=== PATIENT | male | born 1980 | race Caucasian/White ===

== ENCOUNTER 2023-08-18 08:19 | Outpatient (CLI) | payer OTHER, SELFPAY | END 2023-08-18 08:20 | disposition home or self-care (01) | PROVIDERS: PCP Physician Assistant Medical; Visit Provider Family Medicine | DX: Z13.220 Encounter for screening for lipoid disorders (principal); Z13.228 Encounter for screening for other metabolic disorders | CPT/HCPCS: 80053; 80061 ==

== ENCOUNTER 2025-03-22 08:10 | Outpatient (CLI) | payer OTHER, SELFPAY | END 2025-03-22 08:11 | disposition home or self-care (01) | LOC: NFLDREF 03-26 11:09 | PROVIDERS: PCP Nurse Practitioner Family; Referring Provider Family Medicine; Visit Provider Nurse Practitioner Family | DX: Z00.00 Encounter for general adult medical examination without abnormal findings (principal); R53.83 Other fatigue; Z13.6 Encounter for screening for cardiovascular disorders | CPT/HCPCS: 80053; 80061 ==

== ENCOUNTER 2025-05-05 23:44 | Day surgery (SDC) | payer OTHER, SELFPAY ==
[2025-05-05 23:51] VITALS: BP 106/59; PULSE 71; RESP 16; TEMP 36.6; O2SAT 100; BMI 31.2
[2025-05-06] VITALS (24 sets, daily range): BP systolic 109–142; BP diastolic 60–86; PULSE 65–104; RESP 12–22; TEMP 36.6–37.2; O2SAT 97–100; BMI 31.0
[2025-05-06] MEDS: ONDANSETRON 2 MG/ML inj 4 MG IVP
[2025-05-06 00:05] LABS: Hematocrit 40.0 % (37.0-53.0); Hemoglobin* 13.4 gm/dL (13.5-17.5); Immature Granulocytes Abs Auto 0.08 K/uL (0.00-0.30); Immature Granulocytes Pct Auto 0.9 %; Mean Corpuscular HGB Conc 34 gm/dL (32-36); Mean Corpuscular Hemoglobin 29 pg (26-34); Mean Corpuscular Volume 87 fL (80-100); RDW Coefficient of Variation % 11.9 % (11.5-15.5); Red Blood Count 4.61 m/uL (4.30-5.90); White Blood Count* 8.90 K/uL (4.50-11.00)
[2025-05-06 00:06] LABS: Appearance Urine Slightly Cloudy (Clear)
[2025-05-06 00:06] LABS: Lactate* 1.1 mmol/L (0.5-1.9); Lymphocytes Absolute Auto 0.70 K/uL (0.90-2.90)
[2025-05-06 00:07] LABS: Slide Review Reflex No
--- NOTE | 2025-05-06 00:15 | ED_ITS ---
HPI - Abdominal Pain General Date Seen: 05/06/25 <Aramis Weiner MD - Last Filed: 05/06/25 07:28> Chief Complaint: Abdominal Pain <Aramis Weiner MD - Last Filed: 05/06/25 07:28> Stated Complaint: abdominal pain <Aramis Weiner MD - Last Filed: 05/06/25 07:28> Time Seen by Provider: 05/05/25 23:53 <Aramis Weiner MD - Last Filed: 05/06/25 07:28> Source: patient, family, RN notes reviewed and old records reviewed <Aramis Weiner MD - Last Filed: 05/06/25 07:28> Mode of arrival: ambulatory <Aramis Weiner MD - Last Filed: 05/06/25 07:28> Limitations: no limitations <Aramis Weiner MD - Last Filed: 05/06/25 07:28> History of Present Illness HPI narrative: Patient is a 44-year-old gentleman who presents here ambulatory for evaluation of abdominal pain he describes in his upper quadrants, with radiation to his testicles. He had abdominal pain earlier in the day at approximately 1:00 p.m., vomited and the pain went away he was able to eat dinner at approximately 6:00 p.m. and then 2 hours later approximately 8:00 p.m. he started vomiting again with the abdominal pain came back. Does not radiate to his back, denies any fevers chills chest pain or shortness of breath associated with this. She has had no rashes he has been ED and drinking otherwise normally today no dysuria frequency and no diarrhea. No history of previous operations on his abdomen. Says he is very phobic of needles, and did get a little pale when we saw him initially. Came here with his and children. No other people currently sick there is no history of travel. History of depression and anxiety. <Aramis Weiner MD - Last Filed: 05/06/25 07:28> MD elicited complaint: abdominal pain <Aramis Weiner MD - Last Filed: 05/06/25 07:28> Pertinent past history: none <Aramis Weiner MD - Last Filed: 05/06/25 07:28> Onset (ago): hour(s) <Aramis Weiner MD - Last Filed: 05/06/25 07:28> Location: epigastric <Aramis Weiner MD - Last Filed: 05/06/25 07:28> Severity: moderate <Aramis Weiner MD - Last Filed: 05/06/25 07:28> Quality: cramping and stabbing <Aramis Weiner MD - Last Filed: 05/06/25 07:28> Radiation: other <Aramis Weiner MD - Last Filed: 05/06/25 07:28> Migration to: no migration <Aramis Weiner MD - Last Filed: 05/06/25 07:28> Exacerbating factors: movement <Aramis Weiner MD - Last Filed: 05/06/25 07:28> Relieving factors: vomiting <Aramis Weiner MD - Last Filed: 05/06/25 07:28> Associated symptoms: nausea, vomiting and chills <Aramis Weiner MD - Last Filed: 05/06/25 07:28> Treatments prior to arrival: other (Pepto-Bismol) <Aramis Weiner MD - Last Filed: 05/06/25 07:28> Related Data Home Medications: Previous Rx's ?Medication ?Instructions ?Recorded bupropion HCl 150 mg 24 hr tablet, 150 mg PO DAILY #90 tabs 03/22/25 extended release clindamycin phosphate 1 % lotion 1 applic topical BID #60 mL 03/22/25 <Aramis Weiner MD - Last Filed: 05/06/25 07:28> Allergies/Adverse Reactions: Allergies Allergy/AdvReac Type Severity Reaction Status Date / Time peanut oil Allergy Severe closing of Verified 05/06/25 02:23 throat house dust Allergy Mild Verified 05/06/25 02:23 pollen extracts Allergy Mild Verified 05/06/25 02:23 raw vegetable Allergy Mild Swelling Verified 05/06/25 02:23 of Lip/Tongue/Throat raw nuts Allergy Severe throat Uncoded 03/22/25 07:41 closes <MD Maira Tinajero Last Filed: 05/06/25 07:28> Review of Systems Status of ROS Reports: 10 or more systems reviewed and unremarkable except as noted in History and below <Aramis Weiner MD - Last Filed: 05/06/25 07:28> [facility] Surgical History: Surgical History No pertinent past surgical history ?Z78.9 - Other specified health status (ICD-10) <Aramis Weiner MD - Last Filed: 05/06/25 07:28> Family History: Family History Sister Breast cancer Mother Stroke Diabetes Grandfather Prostate cancer <Aramis Weiner MD - Last Filed: 05/06/25 07:28> Social History: Social History Narrative: alcohol ingestion, 1-4 drinks/week does not use illicit drugs nonsmoker What is your current living situation?: I presently have a place to live Problems where you live: declined to answer In the past 12 months, utilities in danger of being shut off: declined to answer In past 12 months, lack of transportation kept you from medical appts, meetings, work, or getting things needed for daily living: no In the past 12 mos, have been you worried that your food would run out before you had money to buy more?: declined to answer In the past 12 mos, the food you bought just didn't last and you didn't have money to buy more?: declined to answer Smoking Status: Never smoker Second hand tobacco smoke exposure: No How often do you have a drink containing alcohol: never AUDIT-C Alcohol total score: 0 Non-prescribed substance use: denies use How often does anyone, including family, friends and others, physically hurt you : decline to answer How often does anyone, including family, friends and others, insult or talk down to you: decline to answer How often does anyone, including family, friends and others, threaten you with harm: decline to answer How often does anyone, including family, friends and others, scream or curse at you: decline to answer <Aramis Weiner MD - Last Filed: 05/06/25 07:28> Exam Narrative: Exam Narrative: On examination in room 5 he is in no apparent distress he is pleasant alert speaking to me normally. Although he does feel to be in moderate distress. Pupils equal round reactive to light there is no scleral icterus redness TMs bilaterally normal oropharynx normal, little pale looking after my nurses put an IV in him. No lymphadenopathy anterior posterior chains no meningismus, chest is good air entry bilaterally heart sounds are normal he has a little bit tenderness upper quadrants with a bit of a positive Pool sign, no CVA tenderness bowel sounds are quiet, no hernias are noted normal male genitalia, no CVA tenderness. No masses noted. No organomegaly. No rashes. Moves all extremities independently all neurologically intact, normal pulses. <Aramis Weiner MD - Last Filed: 05/06/25 07:28> Const: Vital Signs, click to edit/add: Vital Signs - 24 hr 05/05/25 23:51 05/06/25 00:00 05/06/25 00:00 Temperature 97.9 F 97.9 F Pulse Rate Pulse Rate [Pulse Oximeter] 71 68 Respiratory Rate 16 16 Blood Pressure Blood Pressure [Le ft Upper Arm] 106/59 L 110/60 Pulse Oximetry 100 100 100 Oxygen Delivery Me thod Room Air Room Air 05/06/25 00:07 05/06/25 00:31 05/06/25 01:01 Temperature 98.0 F Pulse Rate 65 95 79 Pulse Rate [Pulse Oximeter] Respiratory Rate 20 22 20 Blood Pressure 109/61 113/65 112/66 Blood Pressure [Le ft Upper Arm] Pulse Oximetry 99 98 97 Oxygen Delivery Me thod 05/06/25 01:55 05/06/25 02:02 05/06/25 04:02 Temperature 98.2 F Pulse Rate 88 69 72 Pulse Rate [Pulse Oximeter] Respiratory Rate 20 20 18 Blood Pressure 126/69 125/67 129/70 Blood Pressure [Le ft Upper Arm] Pulse Oximetry 97 97 99 Oxygen Delivery Me thod 05/06/25 06:02 05/06/25 06:03 05/06/25 08:00 Temperature 98.4 F Pulse Rate 91 92 102 H Pulse Rate [Pulse Oximeter] Respiratory Rate 18 Blood Pressure 116/69 Blood Pressure [Le ft Upper Arm] Pulse Oximetry 97 98 97 Oxygen Delivery Me thod 05/06/25 08:01 Temperature Pulse Rate 104 H Pulse Rate [Pulse Oximeter] Respiratory Rate 16 Blood Pressure 114/67 Blood Pressure [Le ft Upper Arm] Pulse Oximetry 97 Oxygen Delivery Me thod <Aramis Weiner MD - Last Filed: 05/06/25 07:28> Vital Signs, click to edit/add: Vital Signs - 24 hr 05/05/25 23:51 05/06/25 00:00 05/06/25 00:00 Temperature 97.9 F 97.9 F Pulse Rate Pulse Rate [Pulse Oximeter] 71 68 Respiratory Rate 16 16 Blood Pressure Blood Pressure [Le ft Upper Arm] 106/59 L 110/60 Pulse Oximetry 100 100 100 Oxygen Delivery Me thod Room Air Room Air 05/06/25 00:07 05/06/25 00:31 05/06/25 01:01 Temperature 98.0 F Pulse Rate 65 95 79 Pulse Rate [Pulse Oximeter] Respiratory Rate 20 22 20 Blood Pressure 109/61 113/65 112/66 Blood Pressure [Le ft Upper Arm] Pulse Oximetry 99 98 97 Oxygen Delivery Me thod 05/06/25 01:55 05/06/25 02:02 05/06/25 04:02 Temperature 98.2 F Pulse Rate 88 69 72 Pulse Rate [Pulse Oximeter] Respiratory Rate 20 20 18 Blood Pressure 126/69 125/67 129/70 Blood Pressure [Le ft Upper Arm] Pulse Oximetry 97 97 99 Oxygen Delivery Me thod 05/06/25 06:02 05/06/25 06:03 05/06/25 08:00 Temperature 98.4 F Pulse Rate 91 92 102 H Pulse Rate [Pulse Oximeter] Respiratory Rate 18 Blood Pressure 116/69 Blood Pressure [Le ft Upper Arm] Pulse Oximetry 97 98 97 Oxygen Delivery Me thod 05/06/25 08:01 Temperature Pulse Rate 104 H Pulse Rate [Pulse Oximeter] Respiratory Rate 16 Blood Pressure 114/67 Blood Pressure [Le ft Upper Arm] Pulse Oximetry 97 Oxygen Delivery Me thod <Lupe Walsh MD - Last Filed: 05/06/25 09:05> Documenting provider has reviewed patient's vital signs: yes <Aramis Weiner MD - Last Filed: 05/06/25 07:28> Course Reevaluation(s) Time of Reevaluation #1: 01:34 <Aramis Weiner MD - Last Filed: 05/06/25 07:28> Reevaluation #1: Pain went from a from 6 to a floor, CT returned showing some pericholecystic fluid trace, along with some did gallbladder distension no evidence of stones, but I do think getting an ultrasound in the morning would be appropriate, as the whole family is here, I am going to send the family home, watch the patient overnight in the emergency room pain medication as needed, I am reassured by the laboratory work, his response to treatment, he was co mfortable with this plan. <Aramis Weiner MD - Last Filed: 05/06/25 07:28> Time of Reevaluation #2: 07:18 <Aramis Weiner MD - Last Filed: 05/06/25 07:28> Reevaluation #2: Discussed with patient, ultrasound looks like cholecystitis. Port still pending, I spoke to and general surgery, she will come see the patient. Signed over to my partner Dr. Osorio. <Aramis Weiner MD - Last Filed: 05/06/25 07:28> Time of Reevaluation #3: 07:23 <Lupe Walsh MD - Last Filed: 05/06/25 09:05> Reevaluation #3: Reviewed with patient that the surgeon will be coming to see him. Will start maintenance fluids, have reviewed NPO status. He will let us know if he has further pain. We did discuss that he will need his gallbladder out, had questions which will defer to the surgeon. Will make sure that we discussed antibiotics with her, she should be here shortly. <Lupe Walsh MD - Last Filed: 05/06/25 09:05> Additional Reevaluation(s): 9:03 a.m.: Dr. Gaona was here prior, did see the patient. She plans on taking him to the OR following her two prior scheduled cases. We will maintain him NPO, IV fluids, nausea or pain management as needed. No antibiotics at this time. We will transition him to same day surgery. <Lupe Walsh MD - Last Filed: 05/06/25 09:05> Vital Signs Vital signs: Initial Vital Signs Temperature 97.9 F 05/05/25 23:51 Temperature Source Temporal Artery Scan 05/05/25 23:51 Pulse Rate 71 05/05/25 23:51 Respiratory Rate 16 05/05/25 23:51 Blood Pressure 106/59 L 05/05/25 23:51 Blood Pressure Mean 74 05/05/25 23:51 Blood Pressure Position Sitting 05/05/25 23:51 Pulse Oximetry 100 05/05/25 23:51 Oxygen Delivery Method Room Air 05/05/25 23:51 Vital Signs Temperature 97.9 F 05/05/25 23:51 Pulse Rate 71 05/05/25 23:51 Respiratory Rate 16 05/05/25 23:51 Blood Pressure 106/59 L 05/05/25 23:51 Pulse Oximetry 100 05/05/25 23:51 Oxygen Delivery Method Room Air 05/05/25 23:51 Temperature 98.4 F 05/06/25 06:02 Pulse Rate 104 H 05/06/25 08:01 Respiratory Rate 16 05/06/25 08:01 Blood Pressure 114/67 05/06/25 08:01 Pulse Oximetry 97 05/06/25 08:01 Oxygen Delivery Method Room Air 05/06/25 00:00 <Aramis Weiner MD - Last Filed: 05/06/25 07:28> Initial Vital Signs Temperature 97.9 F 05/05/25 23:51 Temperature Source Temporal Artery Scan 05/05/25 23:51 Pulse Rate 71 05/05/25 23:51 Respiratory Rate 16 05/05/25 23:51 Blood Pressure 106/59 L 05/05/25 23:51 Blood Pressure Mean 74 05/05/25 23:51 Blood Pressure Position Sitting 05/05/25 23:51 Pulse Oximetry 100 05/05/25 23:51 Oxygen Delivery Method Room Air 05/05/25 23:51 Vital Signs Temperature 97.9 F 05/05/25 23:51 Pulse Rate 71 05/05/25 23:51 Respiratory Rate 16 05/05/25 23:51 Blood Pressure 106/59 L 05/05/25 23:51 Pulse Oximetry 100 05/05/25 23:51 Oxygen Delivery Method Room Air 05/05/25 23:51 Temperature 98.4 F 05/06/25 06:02 Pulse Rate 104 H 05/06/25 08:01 Respiratory Rate 16 05/06/25 08:01 Blood Pressure 114/67 05/06/25 08:01 Pulse Oximetry 97 05/06/25 08:01 Oxygen Delivery Method Room Air 05/06/25 00:00 <Lupe Walsh MD - Last Filed: 05/06/25 09:05> Medications Administered Medications: Generic Name Dose Route Start Last Admin Trade Name Freq PRN Reason Stop Dose Admin Lactated Ringer's 1,000 mls @ 125 mls/hr 05/06/25 07:25 05/06/25 07:36 Lactated Ringers 1000 Ml IV 125 mls/hr .Q8H RADHA Administration Discontinued Medications Generic Name Dose Route Start Last Admin Trade Name Freq PRN Reason Stop Dose Admin Hydromorphone HCl 0.5 mg 05/05/25 23:53 05/06/25 00:02 Hydromorphone 0.5 Mg/0.5 Ml Inj IVP 05/05/25 23:54 0.5 mg ONCE ONE Administration Sodium Chloride 1,000 mls @ 1,000 mls/hr 05/05/25 23:45 05/06/25 00:51 0.9 % Sodium Chloride 1000 Ml IV 05/06/25 00:44 Infused .Q1H RADHA Infusion Sodium Chloride 1,000 mls @ 1,000 mls/hr 05/06/25 01:30 05/06/25 01:55 0.9 % Sodium Chloride 1000 Ml IV 05/06/25 02:29 Infused .Q1H RADHA Infusion Ketorolac Tromethamine 30 mg 05/06/25 01:31 05/06/25 07:36 Ketorolac 30 Mg/Ml Inj IVP 05/06/25 01:32 30 mg ONCE ONE Administration Ondansetron HCl 4 mg 05/05/25 23:53 05/06/25 00:00 Ondansetron 2 Mg/Ml Inj IVP 05/05/25 23:54 4 mg ONCE ONE Administration <Aramis Weiner MD - Last Filed: 05/06/25 07:28> Generic Name Dose Route Start Last Admin Trade Name Freq PRN Reason Stop Dose Admin Lactated Ringer's 1,000 mls @ 125 mls/hr 05/06/25 07:25 05/06/25 07:36 Lactated Ringers 1000 Ml IV 125 mls/hr .Q8H RADHA Administration Discontinued Medications Generic Name Dose Route Start Last Admin Trade Name Freq PRN Reason Stop Dose Admin Hydromorphone HCl 0.5 mg 05/05/25 23:53 05/06/25 00:02 Hydromorphone 0.5 Mg/0.5 Ml Inj IVP 05/05/25 23:54 0.5 mg ONCE ONE Administration Sodium Chloride 1,000 mls @ 1,000 mls/hr 05/05/25 23:45 05/06/25 00:51 0.9 % Sodium Chloride 1000 Ml IV 05/06/25 00:44 Infused .Q1H RADHA Infusion Sodium Chloride 1,000 mls @ 1,000 mls/hr 05/06/25 01:30 05/06/25 01:55 0.9 % Sodium Chloride 1000 Ml IV 05/06/25 02:29 Infused .Q1H RADHA Infusion Ketorolac Tromethamine 30 mg 05/06/25 01:31 05/06/25 07:36 Ketorolac 30 Mg/Ml Inj IVP 05/06/25 01:32 30 mg ONCE ONE Administration Ondansetron HCl 4 mg 05/05/25 23:53 05/06/25 00:00 Ondansetron 2 Mg/Ml Inj IVP 05/05/25 23:54 4 mg ONCE ONE Administration <Lupe Walsh MD - Last Filed: 05/06/25 09:05> MDM - Abdominal Pain MDM Narrative Medical decision making narrative: During this evaluation of this patient I considered multiple differential diagnosis is which included the life-threatening such as appendicitis, aortic aneurysm, mesenteric ischemia, bowel perforation, volvulus, and bowel obstruction. Other differential diagnosis is include but are not limited to cholecystitis, pancreatitis, hepatitis, gastritis, GERD, diverticulitis, peptic ulcer disease, pyelonephritis/UTI, renal colic/stone, testicular torsion as well as other acute scrotal processes, inflammatory bowel disease, as well as other etiologies <Aramis Weiner MD - Last Filed: 05/06/25 07:28> Differential Diagnosis Differential diagnosis: Likely abdominal pain, acute appendicitis, calculus of kidney, constipation, diverticulitis, endometriosis, gastroenteritis, pancreatitis and small bowel obstruction <Aramis Weiner MD - Last Filed: 05/06/25 07:28> Medical Records Attestation: I reviewed the patient's medical records. <Aramis Weiner MD - Last Filed: 05/06/25 07:28> Lab Data Attestation: I reviewed the patient's lab results. <Aramis Weiner MD - Last Filed: 05/06/25 07:28> Labs: Lab Results 05/05/25 05/05/25 Range/Units 23:54 23:58 WBC 8.90 (4.50-11.00) K/uL RBC 4.61 (4.30-5.90) m/uL Hgb 13.4 L (13.5-17.5) gm/dL Hct 40.0 (37.0-53.0) % MCV 87 (80-100) fL MCH 29 (26-34) pg MCHC 34 (32-36) gm/dL RDW Coeff of Mayela 11.9 (11.5-15.5) % Plt Count 231 (140-440) K/uL Neut % (Auto) 84.4 H (42.0-72.0) % Lymph % (Auto) 8.4 L (20-44) % [place] % (Auto) 5.3 (0.0-11.0) % Eos % (Auto) 0.8 (0.0-7.0) % Baso % (Auto) 0.2 (0.0-3.0) % Neut # (Auto) 7.50 H (1.7-7.0) K/uL Lymph # (Auto) 0.70 L (0.90-2.90) K/uL [place] # (Auto) 0.50 (0.00-0.90) K/UL Eos # (Auto) 0.07 (0.00-0.50) K/uL Baso # (Auto) 0.02 (0.00-0.30) K/uL Abs Immat Gran (auto) 0.08 (0.00-0.30) K/uL Imm/Tot Granulo (auto) 0.9 % Sodium 139 (135-149) mmol/L Potassium 3.9 (3.6-5.1) mmol/L Chloride 103 (96-114) mmol/L Carbon Dioxide 29 (20-32) mmol/L Anion Gap 7 (7-15) mEq/L BUN 21 (5-24) mg/dL Creatinine 0.9 (0.5-1.5) mg/dL Estimated Creat Clear 117.36 Estimated GFR 109 ml/min Glucose 134 H (60-115) mg/dL Lactate 1.1 (0.5-1.9) mmol/L Calcium 9.7 (8.4-10.6) mg/dL Total Bilirubin 0.3 (0.1-1.5) mg/dL Direct Bilirubin 0.1 (0.0-0.5) mg/dL AST 29 (12-35) U/L ALT 24 (4-50) U/L Alkaline Phosphatase 61 (40-150) U/L Troponin I < 0.01 (0.01-0.04) ng/mL C-Reactive Protein < 0.5 L (0.5-1.0) mg/dL Total Protein 7.6 (6.0-8.3) g/dL Albumin 4.5 (3.3-5.0) g/dL Amylase 81 (18-89) U/L Lipase 73 (23-300) U/L Procalcitonin 0.04 (<0.50) ng/mL Urine Color Yellow (Yellow) Urine Appearance Slightly Cloudy A (Clear) Urine pH 7.5 (5.0-8.5) Ur Specific [place] 1.015 (1.000-1.030) Urine Protein Negative (Negative) Urine Glucose (UA) Negative (Negative) Urine Ketones 2+ A (Negative) Urine Blood Negative (Negative) Urine Nitrite Negative (Negative) Urine Bilirubin Negative (Negative) Urine Urobilinogen 1.0 (0.2-1.0) Ur Leukocyte Esterase Negative (Negative) Urine RBC 0-2 (0-2) Urine WBC 0-2 (0-5) Ur Squamous Epith Cells Few (None-Few) Amorphous Sediment Few A (None) Urine Bacteria Few A (None) <Aramis Weiner MD - Last Filed: 05/06/25 07:28> Lab Results 05/05/25 05/05/25 Range/Units 23:54 23:58 WBC 8.90 (4.50-11.00) K/uL RBC 4.61 (4.30-5.90) m/uL Hgb 13.4 L (13.5-17.5) gm/dL Hct 40.0 (37.0-53.0) % MCV 87 (80-100) fL MCH 29 (26-34) pg MCHC 34 (32-36) gm/dL RDW Coeff of Mayela 11.9 (11.5-15.5) % Plt Count 231 (140-440) K/uL Neut % (Auto) 84.4 H (42.0-72.0) % Lymph % (Auto) 8.4 L (20-44) % [place] % (Auto) 5.3 (0.0-11.0) % Eos % (Auto) 0.8 (0.0-7.0) % Baso % (Auto) 0.2 (0.0-3.0) % Neut # (Auto) 7.50 H (1.7-7.0) K/uL Lymph # (Auto) 0.70 L (0.90-2.90) K/uL [place] # (Auto) 0.50 (0.00-0.90) K/UL Eos # (Auto) 0.07 (0.00-0.50) K/uL Baso # (Auto) 0.02 (0.00-0.30) K/uL Abs Immat Gran (auto) 0.08 (0.00-0.30) K/uL Imm/Tot Granulo (auto) 0.9 % Sodium 139 (135-149) mmol/L Potassium 3.9 (3.6-5.1) mmol/L Chloride 103 (96-114) mmol/L Carbon Dioxide 29 (20-32) mmol/L Anion Gap 7 (7-15) mEq/L BUN 21 (5-24) mg/dL Creatinine 0.9 (0.5-1.5) mg/dL Estimated Creat Clear 117.36 Estimated GFR 109 ml/min Glucose 134 H (60-115) mg/dL Lactate 1.1 (0.5-1.9) mmol/L Calcium 9.7 (8.4-10.6) mg/dL Total Bilirubin 0.3 (0.1-1.5) mg/dL Direct Bilirubin 0.1 (0.0-0.5) mg/dL AST 29 (12-35) U/L ALT 24 (4-50) U/L Alkaline Phosphatase 61 (40-150) U/L Troponin I < 0.01 (0.01-0.04) ng/mL C-Reactive Protein < 0.5 L (0.5-1.0) mg/dL Total Protein 7.6 (6.0-8.3) g/dL Albumin 4.5 (3.3-5.0) g/dL Amylase 81 (18-89) U/L Lipase 73 (23-300) U/L Procalcitonin 0.04 (<0.50) ng/mL Urine Color Yellow (Yellow) Urine Appearance Slightly Cloudy A (Clear) Urine pH 7.5 (5.0-8.5) Ur Specific [place] 1.015 (1.000-1.030) Urine Protein Negative (Negative) Urine Glucose (UA) Negative (Negative) Urine Ketones 2+ A (Negative) Urine Blood Negative (Negative) Urine Nitrite Negative (Negative) Urine Bilirubin Negative (Negative) Urine Urobilinogen 1.0 (0.2-1.0) Ur Leukocyte Esterase Negative (Negative) Urine RBC 0-2 (0-2) Urine WBC 0-2 (0-5) Ur Squamous Epith Cells Few (None-Few) Amorphous Sediment Few A (None) Urine Bacteria Few A (None) <Lupe Walsh MD - Last Filed: 05/06/25 09:05> Imaging Data CT scan - abdomen: Attestation: I have reviewed the pertinent imaging results. <Aramis Weiner MD - Last Filed: 05/06/25 07:28> Radiologist's impression: [place] [address] Diagnostic Imaging Report Patient: Braden Stern MR#: [id number] : 1980 Acct:[id number] Loc: ED Service Date: 05/06/[address]: Ordering Physician: Aramis Weiner M.D. Date of Service: 05/06/25 Procedure(s): CT abdomen pelvis w con Accession Number(s): [id number] cc: Provider,Not a Local; Aramis Weiner M.D.~ For Patients: As a result of the Cures Act, medical imaging exams and procedure reports are released immediately into your electronic medical record. You may view this report before your referring provider. If you have questions, please contact your health care provider. INDICATION: Epigastric pain. TECHNIQUE: CT of the abdomen and pelvis acquired with 113 cc Isovue 370 IV contrast. Coronal and sagittal reconstructions. COMPARISON: None. FINDINGS: Lower chest: Unremarkable. Liver: Normal in size and attenuation. Few subcentimeter hypodense lesions are too small to characterize but likely benign. Gallbladder and bile ducts: The gallbladder is mildly distended with questionable trace pericholecystic edema. No calcified gallstones are seen. No biliary dilation. Spleen: Unremarkable. Pancreas: Unremarkable. Adrenal glands: The right adrenal gland is negative. Calcifications in the left adrenal gland are likely related to prior infection or hemorrhage. Kidneys, Ureters, and Bladder: Symmetric enhancement. Minimal cortical scarring in the upper pole of the left kidney. No hydronephrosis. No obstructing urinary calculi. Underdistended urinary bladder. Reproductive organs: Calcifications within a nonenlarged prostate gland. GI tract/Peritoneum: The stomach appears normal. No small bowel dilation. Moderate stool burden. Negative appendix. No intraperitoneal free air or fluid. Vasculature: Abdominal aorta is normal in caliber. Mesenteric arteries appear patent. Retroaortic left renal vein. Lymph nodes: No lymphadenopathy. Abdominal Wall: Tiny fat containing umbilical hernia. Bones: Unremarkable for age. IMPRESSION: 1. The gallbladder is mildly distended with questionable trace pericholecystic edema. Consider further evaluation with right upper quadrant ultrasound. 2. No other acute findings in the abdomen or pelvis. Please note that all CT scans at this facility use dose modulation, iterative reconstruction, and/or weight-based dosing when appropriate to reduce radiation dose to as low as reasonably achievable. Dictated by Ceci Howe MD @ 05/06/2025 1:22:39 [place] [address] Diagnostic Imaging Report Patient: Braden Stern MR#: [id number] : 1980 Acct:[id number] Loc: ED Service Date: 05/06/[address]: Ordering Physician: Aramis Weiner M.D. Date of Service: 05/06/25 Procedure(s): US gallbladder Accession Number(s): [id number] cc: Provider,Not a Local; Aramis Weiner M.D.~ For Patients: As a result of the Century Cures Act, medical imaging exams and procedure reports are released immediately into your electronic medical record. You may view this report before your referring provider. If you have questions, please contact your health care provider. INDICATION: Right upper quadrant abdomen pain. TECHNIQUE: Ultrasound abdomen limited. Sonographic images of the right upper quadrant were obtained using manley-scale and color Doppler images. COMPARISON: Same day CT abdomen and pelvis FINDINGS: Gallbladder: Cholelithiasis. Mild edematous gallbladder wall measuring 5 millimeters. No significant pericholecystic fluid. Sonographic Pool`s sign is negative. IMPRESSION: Cholelithiasis with gallbladder wall edema is concerning for early acute cholecystitis. Sonographic Pool`s sign is negative, but if recent pain medication was given, this sign may not be accurate. Dictated by Chaya Wiley MD @ 05/06/2025 7:19:41 AM (Electronically Signed)(Electronically Signed) <Aramis Weiner MD - Last Filed: 05/06/25 07:28> ECG Data Attestation: I personally reviewed and interpreted this ECG as follows: <Aramis Weiner MD - Last Filed: 05/06/25 07:28> ECG interpretation date: 05/06/25 <Aramis Weiner MD - Last Filed: 05/06/25 07:28> Prior ECG tracings: not available for review <Aramis Weiner MD - Last Filed: 05/06/25 07:28> Interpretation: EKG shows normal sinus rhythm with a ventricular rate of 70. QRS is normal at 98 milliseconds QT is 396 and QTC is 427. Assessment: Normal EKG <Aramis Weiner MD - Last Filed: 05/06/25 07:28> Discharge Plan Discharge Clinical Impression: Acute cholecystitis <Aramis Weienr MD - Last Filed: 05/06/25 07:28> Patient Disposition: XFER to OR <Aramis Weiner MD - Last Filed: 05/06/25 07:28> Condition: Improved <Aramis Weiner MD - Last Filed: 05/06/25 07:28> Instructions: Cholecystitis (ED), Laparoscopic Cholecystectomy (DC) <Aramis Weiner MD - Last Filed: 05/06/25 07:28> Follow Up/Referrals: Kylah Morley [employer] [Nurse Practitioner, Family Practice] <Aramis Weiner MD - Last Filed: 05/06/25 07:28> Procedures POC Ultrasound Biliary Anatomical areas examined: gallbladder, long and short axis and common bile duct <Aramis Weiner MD - Last Filed: 05/06/25 07:28> Indications: RUQ/epigastric pain <Aramis Weiner MD - Last Filed: 05/06/25 07:28> Exam type: limited abdominal ultrasound; RUQ <Aramis Weiner MD - Last Filed: 05/06/25 07:28> Anterior gallbladder wall (mm): 4 <Aramis Weiner MD - Last Filed: 05/06/25 07:28> US biliary common bild duct (mm): 2 <Aramis Weiner MD - Last Filed: 05/06/25 07:28> Impression: normal exam <Aramis Weiner MD - Last Filed: 05/06/25 07:28>
[2025-05-06 00:21] LABS: Albumin* 4.5 g/dL (3.3-5.0); Chloride* 103 mmol/L (96-114); Sodium* 139 mmol/L (135-149)
[2025-05-06 00:22] LABS: Potassium* 3.9 mmol/L (3.6-5.1)
[2025-05-06 00:24] LABS: Alanine Aminotransferase* 24 U/L (4-50); Alkaline Phosphatase* 61 U/L (40-150); Anion Gap 7 mEq/L (7-15); Aspartate Amino Transferase* 29 U/L (12-35); Bilirubin Direct* 0.1 mg/dL (0.0-0.5); Bilirubin Total* 0.3 mg/dL (0.1-1.5); Blood Urea Nitrogen* 21 mg/dL (5-24); Calcium* 9.7 mg/dL (8.4-10.6); Carbon Dioxide* 29 mmol/L (20-32); Creatinine* 0.9 mg/dL (0.5-1.5); Est. Creatinine Clearance* 117.36; Estimated Glomerular Filt Rate 109 ml/min; Glucose* 134 mg/dL (60-115); Total Protein* 7.6 g/dL (6.0-8.3)
--- NOTE | 2025-05-06 00:35 | CRLHL7_ITS ---
For Patients: As a result of the Century Cures Act, medical imaging exams and procedure reports are released immediately into your electronic medical record. You may view this report before your referring provider. If you have questions, please contact your health care provider. INDICATION: Epigastric pain. TECHNIQUE: CT of the abdomen and pelvis acquired with 113 cc Isovue 370 IV contrast. Coronal and sagittal reconstructions. COMPARISON: None. FINDINGS: Lower chest: Unremarkable. Liver: Normal in size and attenuation. Few subcentimeter hypodense lesions are too small to characterize but likely benign. Gallbladder and bile ducts: The gallbladder is mildly distended with questionable trace pericholecystic edema. No calcified gallstones are seen. No biliary dilation. Spleen: Unremarkable. Pancreas: Unremarkable. Adrenal glands: The right adrenal gland is negative. Calcifications in the left adrenal gland are likely related to prior infection or hemorrhage. Kidneys, Ureters, and Bladder: Symmetric enhancement. Minimal cortical scarring in the upper pole of the left kidney. No hydronephrosis. No obstructing urinary calculi. Underdistended urinary bladder. Reproductive organs: Calcifications within a nonenlarged prostate gland. GI tract/Peritoneum: The stomach appears normal. No small bowel dilation. Moderate stool burden. Negative appendix. No intraperitoneal free air or fluid. Vasculature: Abdominal aorta is normal in caliber. Mesenteric arteries appear patent. Retroaortic left renal vein. Lymph nodes: No lymphadenopathy. Abdominal Wall: Tiny fat containing umbilical hernia. Bones: Unremarkable for age. IMPRESSION: 1. The gallbladder is mildly distended with questionable trace pericholecystic edema. Consider further evaluation with right upper quadrant ultrasound. 2. No other acute findings in the abdomen or pelvis. Please note that all CT scans at this facility use dose modulation, iterative reconstruction, and/or weight-based dosing when appropriate to reduce radiation dose to as low as reasonably achievable. Dictated by Ceci Howe MD @ 05/06/2025 1:22:39 AM (Electronically Signed)
[2025-05-06 00:41] LABS: Procalcitonin* 0.04 ng/mL (<0.50)
--- NOTE | 2025-05-06 01:33 | CRLHL7_ITS ---
For Patients: As a result of the Century Cures Act, medical imaging exams and procedure reports are released immediately into your electronic medical record. You may view this report before your referring provider. If you have questions, please contact your health care provider. INDICATION: Right upper quadrant abdomen pain. TECHNIQUE: Ultrasound abdomen limited. Sonographic images of the right upper quadrant were obtained using manley-scale and color Doppler images. COMPARISON: Same day CT abdomen and pelvis FINDINGS: Gallbladder: Cholelithiasis. Mild edematous gallbladder wall measuring 5 millimeters. No significant pericholecystic fluid. Sonographic Pool`s sign is negative. IMPRESSION: Cholelithiasis with gallbladder wall edema is concerning for early acute cholecystitis. Sonographic Pool`s sign is negative, but if recent pain medication was given, this sign may not be accurate. Dictated by Chaya Wiley MD @ 05/06/2025 7:19:41 AM (Electronically Signed)
[2025-05-06] MEDS: LACTATED RINGERS 1000 ML 1,000 ML 125 ML IV (07:36)
--- NOTE | 2025-05-06 08:23 | PM.GSCN ---
History of Present Illness Consult details Date Seen: 05/06/25 Consult date: 05/06/25 Narrative: The patient is a 44-year-old male who presented to the emergency department overnight with severe epigastric pain. He states that this began yesterday afternoon after eating [employer]. He states that the pain radiated down into his abdomen. It did not radiate into his back. With this he had nausea and vomiting. The pain lasted for 2 hours. It was constant. He tried stretching and was able to lay down and fall asleep. When he woke up he had no pain and felt ?like nothing happened. ? He went for a walk and then had dinner. He had pasta and shrimp and within an hour he had the same severe pain as before. He vomited again. The pain lasted for 4 hours and he then came into the emergency department. Pain medicine has helped. His discomfort is now 1/10 but he still feels like ?something is off. ? He had a large normal bowel movement yesterday. No diarrhea. He has never had pain like this before. He does have a history of reflux and underwent an EGD in 2011 for food impaction. They stated that he had a stricture. He does not take any medication for reflux. [facility] Medical History (Updated 05/06/25 @ 09:39 by Miladys Gaona MD) Major depressive disorder, recurrent episode ?F33.9 - Major depressive disorder, recurrent, unspecified (ICD-10) Surgical History (Updated 05/06/25 @ 09:39 by Miladys Gaona MD) History of tonsillectomy ?Z90.89 - Acquired absence of other organs (ICD-10) No pertinent past surgical history ?Z78.9 - Other specified health status (ICD-10) Family History (Updated 05/06/25 @ 09:39 by Miladys Gaona MD) Sister Breast cancer Mother Stroke Diabetes Grandfather Prostate cancer Social History (Updated 05/06/25 @ 09:40 by Miladys Gaona MD) Narrative: alcohol ingestion, 1-4 drinks/week does not use illicit drugs nonsmoker He works in IT. What is your current living situation?: I presently have a place to live Problems where you live: declined to answer In the past 12 months, utilities in danger of being shut off: declined to answer In past 12 months, lack of transportation kept you from medical appts, meetings, work, or getting things needed for daily living: no In the past 12 mos, have been you worried that your food would run out before you had money to buy more?: declined to answer In the past 12 mos, the food you bought just didn't last and you didn't have money to buy more?: declined to answer Smoking Status: Never smoker Second hand tobacco smoke exposure: No How often do you have a drink containing alcohol: never AUDIT-C Alcohol total score: 0 Non-prescribed substance use: denies use How often does anyone, including family, friends and others, physically hurt you: decline to answer How often does anyone, including family, friends and others, insult or talk down to you: decline to answer How often does anyone, including family, friends and others, threaten you with harm: decline to answer How often does anyone, including family, friends and others, scream or curse at you: decline to answer Meds Home Medications and Allergies Home Medications ?Medication ?Instructions ?Recorded ?Confirmed ?Type bupropion HCl 150 mg 24 hr tablet, 150 mg PO DAILY #90 tabs 03/22/25 05/05/25 Rx extended release clindamycin phosphate 1 % lotion 1 applic topical BID #60 mL 03/22/25 05/06/25 Rx Allergies Allergy/AdvReac Type Severity Reaction Status Date / Time peanut oil Allergy Severe closing of Verified 05/06/25 02:23 throat house dust Allergy Mild Verified 05/06/25 02:23 pollen extracts Allergy Mild Verified 05/06/25 02:23 raw vegetable Allergy Mild Swelling Verified 05/06/25 02:23 of Lip/Tongue/Throat raw nuts Allergy Severe throat Uncoded 03/22/25 07:41 closes Exam Narrative: Exam Narrative: General appearance: Alert, cooperative, and in no distress Eyes: PERRLA, eye lids clear, and sclera white HENT Head: Normocephalic Ears: External ears normal Pulmonary: Clear to auscultation bilaterally Cardiovascular Heart: Regular rate and rhythm Extremities: warm and well perfused Gastrointestinal Abdominal: No scars. Abdomen is mildly tender in the upper abdomen, worse in the epigastric region. Negative Pool sign. Skin: Normal skin color, texture, and turgor. Neurologic: No focal deficits Psychiatric: Alert, oriented, cooperative, normal affect. Const: Vital Signs, click to edit/add: Vital Signs - 24 hr 05/05/25 23:51 05/06/25 00:00 05/06/25 00:00 Temperature 97.9 F 97.9 F Pulse Rate Pulse Rate [Pulse Oximeter] 71 68 Respiratory Rate 16 16 Blood Pressure Blood Pressure [Le ft Upper Arm] 106/59 L 110/60 Pulse Oximetry 100 100 100 Oxygen Delivery Me thod Room Air Room Air 05/06/25 00:07 05/06/25 00:31 05/06/25 01:01 Temperature 98.0 F Pulse Rate 65 95 79 Pulse Rate [Pulse Oximeter] Respiratory Rate 20 22 20 Blood Pressure 109/61 113/65 112/66 Blood Pressure [Le ft Upper Arm] Pulse Oximetry 99 98 97 Oxygen Delivery Me thod 05/06/25 01:55 05/06/25 02:02 05/06/25 04:02 Temperature 98.2 F Pulse Rate 88 69 72 Pulse Rate [Pulse Oximeter] Respiratory Rate 20 20 18 Blood Pressure 126/69 125/67 129/70 Blood Pressure [Le ft Upper Arm] Pulse Oximetry 97 97 99 Oxygen Delivery Me thod 05/06/25 06:02 05/06/25 06:03 05/06/25 08:00 Temperature 98.4 F Pulse Rate 91 92 102 H Pulse Rate [Pulse Oximeter] Respiratory Rate 18 Blood Pressure 116/69 Blood Pressure [Le ft Upper Arm] Pulse Oximetry 97 98 97 Oxygen Delivery Me thod 05/06/25 08:01 Temperature Pulse Rate 104 H Pulse Rate [Pulse Oximeter] Respiratory Rate 16 Blood Pressure 114/67 Blood Pressure [Le ft Upper Arm] Pulse Oximetry 97 Oxygen Delivery Me thod Results Labs Labs: White blood cell count was normal but with a left shift. CRP was less than 0.5. LFTs were within normal limits. Lipase normal. Imaging Additional studies: Ultrasound abdomen 05/06/2025: TECHNIQUE: Ultrasound abdomen limited. Sonographic images of the right upper quadrant were obtained using manley-scale and color Doppler images. COMPARISON: Same day CT abdomen and pelvis FINDINGS: Gallbladder: Cholelithiasis. Mild edematous gallbladder wall measuring 5 millimeters. No significant pericholecystic fluid. Sonographic Pool`s sign is negative. IMPRESSION: Cholelithiasis with gallbladder wall edema is concerning for early acute cholecystitis. Sonographic Pool`s sign is negative, but if recent pain medication was given, this sign may not be accurate. Dictated by Chaya Wiley MD @ 05/06/2025 7:19:41 AM (Electronically Signed) CT abdomen pelvis 05/06/2025: IMPRESSION: 1. The gallbladder is mildly distended with questionable trace pericholecystic edema. Consider further evaluation with right upper quadrant ultrasound. 2. No other acute findings in the abdomen or pelvis. Please note that all CT scans at this facility use dose modulation, iterative reconstruction, and/or weight-based dosing when appropriate to reduce radiation dose to as low as reasonably achievable. Dictated by Ceci Howe MD @ 05/06/2025 1:22:39 AM Progress Note:A&P Assessment and plan (1) Acute cholecystitis: Status: Acute Plan The patient is a 44-year-old male with acute cholecystitis. I recommended cholecystectomy. We did discuss options of a trial of diet, however since he has already tried and had recurrence of his symptoms and with the gallbladder thickening seen on ultrasound I think it is most reasonable to plan on cholecystectomy today. We discussed the procedure as well as risks and benefits of surgery which include bleeding, infection, bile leak, conversion to open or injury to other structures, specifically the common bile duct. We also discussed recovery. He is agreeable to proceed and we will plan on surgery today at the 1st OR availability.
[2025-05-06] MEDS: LACTATED RINGERS 1000 ML 1,000 ML 75 ML IV (13:41)
[2025-05-06] MEDS: BUPIVACAINE 0.25% 30 ML INJECTION (14:45)
--- NOTE | 2025-05-06 14:57 | P.ANES_ITS ---
Anesthesia Charges Start Date/Time Anesthesia Start Date: 05/06/25 Anesthesia Start Time: 13:41 Stop Date/Time Anesthesia Stop Date: 05/06/25 Anesthesia Stop Time: 15:09 Coding CPT Codes CPT Codes: ANESTH SURG UPPER ABDOMEN - 99594 ([id number]) P2 - PATIENT W/MILD SYST DISEASE, QK - CEMENT KILN OPERATOR 2-4 CNCRNT ANES PROC, QX - GAME FARM SUPERVISOR SVC W/ MD MED DIRECTION
--- NOTE | 2025-05-06 14:57 | W.ANESCHARGE ---
Anesthesia Charges Start Date/Time Anesthesia Start Date: 05/06/25 Anesthesia Start Time: 13:41 Stop Date/Time Anesthesia Stop Date: 05/06/25 Anesthesia Stop Time: 15:09 Coding CPT Codes CPT Codes: ANESTH SURG UPPER ABDOMEN - 57492 ([id number]) P2 - PATIENT W/MILD SYST DISEASE, QK - SUCTION OPERATOR 2-4 CNCRNT ANES PROC, QX - STATION ATTENDANT SVC W/ MD MED DIRECTION
--- NOTE | 2025-05-06 15:05 | PC.NURSE ---
pt is alert and oriented. went to surgery around 1345, with plan to DC from same day surgery.
--- NOTE | 2025-05-06 15:10 | P.ANES_ITS ---
Anesthesia Charges Start Date/Time Anesthesia Start Date: 05/06/25 Anesthesia Start Time: 13:41 Stop Date/Time Anesthesia Stop Date: 05/06/25 Anesthesia Stop Time: 15:09 Coding CPT Codes CPT Codes: ANESTH SURG UPPER ABDOMEN - 98885 ([id number]) P2 - PATIENT W/MILD SYST DISEASE, QK - CHILD CARE SITTER 2-4 CNCRNT ANES PROC, QX - OPTICAL GOODS DRILL OPERATOR SVC W/ MD MED DIRECTION
--- NOTE | 2025-05-06 15:10 | W.ANESCHARGE ---
Anesthesia Charges Start Date/Time Anesthesia Start Date: 05/06/25 Anesthesia Start Time: 13:41 Stop Date/Time Anesthesia Stop Date: 05/06/25 Anesthesia Stop Time: 15:09 Coding CPT Codes CPT Codes: ANESTH SURG UPPER ABDOMEN - 75181 ([id number]) P2 - PATIENT W/MILD SYST DISEASE, QK - RECREATION PROFESSOR 2-4 CNCRNT ANES PROC, QX - MATH TUTOR SVC W/ MD MED DIRECTION
--- NOTE | 2025-05-06 15:17 | PM.GSPRC ---
Operative Note Date of procedure: 05/06/25 Pre-op diagnosis: Acute cholecystitis Post-op diagnosis: Same Type of Procedure: Laparoscopic cholecystectomy Indications: The patient is a 44-year-old male who presented to the emergency department with severe epigastric pain. Workup revealed gallbladder wall thickening concerning for cholecystitis. Because he had previously failed a trial of diet, I recommended cholecystectomy. After discussion of risks and benefits, he agreed to proceed. Procedure Description: After discussing the risks and benefits of the procedure, the patient signed informed consent.? The operative site was marked and the patient was brought to the operating room and placed on the operating table in supine position.? Care was taken to pad the patient's pressure points.?? The patient was then intubated by anesthesia.?? The operative site was then prepped and draped in the usual sterile fashion.? A time-out was then performed. Entrance to the abdomen was gained via a 5 mm Visiport in the left upper quadrant. The abdomen was insufflated and briefly surveyed for signs of injury. There was none. A 10 mm umbilical port was placed as well as 2 working ports along the right costal margin, all under direct vision. The patient was then placed in reverse Trendelenburg position with the right side up. The gallbladder fundus was grasped and retracted cephalad. The gallbladder was noted to be edematous. There was a small amount of bilious ascites about the gallbladder and the gallbladder wall had changes consistent with ischemia. The infundibulum was grasped. A combination of hook cautery and blunt dissection was used to carefully dissect out the cystic duct and artery until they could clearly be seen entering the gallbladder without any intervening structures. The gallbladder was dissected off the cystic plate to achieve the critical view. Once this was achieved the cystic duct and artery were each clipped with 2 clips proximally and 1 clip distally and transected with the scissors. The gallbladder was then taken off of the liver bed and removed from the abdomen using an Endo-Catch bag. The gallbladder bed was surveyed for hemostasis which appeared excellent. A small amount of bile which had spilled was suctioned from the abdomen. The ports were then removed and the abdomen desufflated. The umbilical port fascia was closed with 0 Vicryl. The skin was closed with absorbable subcuticular suture. Sterile dressings were applied. Instrument sponge and needle counts were correct at the end of the case. The patient was then woken and transferred to the PACU in stable condition. ? The patient tolerated the procedure well. Findings: Acute cholecystitis Surgeon: Miladys Gaona MD Estimated blood loss (mL): 5 Specimen: Gallbladder Condition: stable Disposition: PACU
== END 2025-05-06 16:42 | disposition home or self-care (01) ==
LOC: ED 05-06 08:51 → OR 05-06 10:06 → MEDSURG 05-06 10:06
PROVIDERS: Emergency Provider Family Medicine; Visit Provider Surgery
PROC: 0FT44ZZ Resection of Gallbladder, Percutaneous Endoscopic Approach (ICD-10-PCS; CPT 47562; principal; 2025-05-06 14:00)
DX: K80.00 Calculus of gallbladder with acute cholecystitis without obstruction (principal)
CPT/HCPCS: 47562; 00790; 36415; 74177; 76705; 80048; 80076; 81001; 82150; 83605; 83690; 84145; 84484; 85025; 86140; 87086; 88304; 93005; 94761; 99284; 99285; J0665; J1100; J1171; J1885; J2405; J2704; J3010; J3490; J7030; J7120; Q9967

== ENCOUNTER 2025-05-15 06:07 | Emergency (ER) | payer OTHER, SELFPAY ==
[2025-05-15 06:16] VITALS: BP 105/53; PULSE 65; RESP 18; TEMP 36.7; O2SAT 97; BMI 31.2
--- NOTE | 2025-05-15 06:21 | ED_ITS ---
HPI - Abdominal Pain General Time Seen by Provider: 06:21 <Juan Manuel Ortiz MD - Last Filed: 05/20/25 16:00> Date Seen: 05/15/25 <Juan Manuel Ortiz MD - Last Filed: 05/20/25 16:00> Chief Complaint: Post Op Complication <Juan Manuel Ortiz MD - Last Filed: 05/20/25 16:00> Stated Complaint: Abdominal pain <Juan Manuel Ortiz MD - Last Filed: 05/20/25 16:00> Time Seen by Provider: 05/15/25 06:21 <Juan Manuel Ortiz MD - Last Filed: 05/20/25 16:00> Source: patient, EMS, RN notes reviewed and old records reviewed <uJan Manuel Ortiz MD - Last Filed: 05/20/25 16:00> Mode of arrival: EMS <Juan Manuel Ortiz MD - Last Filed: 05/20/25 16:00> Limitations: no limitations <Juan Manuel Ortiz MD - Last Filed: 05/20/25 16:00> History of Present Illness HPI narrative: 44-year-old male is about 1 week status post cholecystectomy comes in with upper abdominal pain started about 2 hours prior to coming the emergency department. Nausea with no vomiting. Has been having regular bowel movements. Denies chest pain or shortness of breath. <Juan Manuel Ortiz MD - Last Filed: 05/20/25 16:00> Related Data Home Medications: Previous Rx's ?Medication ?Instructions ?Recorded bupropion HCl 150 mg 24 hr tablet, 150 mg PO DAILY #90 tabs 03/22/25 extended release clindamycin phosphate 1 % lotion 1 applic topical BID #60 mL 03/22/25 ketorolac 10 mg tablet 10 mg PO TID PRN pain 5 days #15 05/06/25 tabs hydrocodone 5 mg-acetaminophen 325 1 tab PO Q8H PRN pa in #10 tabs 05/15/25 mg tablet <Juan Manuel Ortiz MD - Last Filed: 05/20/25 16:00> Allergies/Adverse Reactions: Allergies Allergy/AdvReac Type Severity Reaction Status Date / Time peanut oil Allergy Severe closing of Verified 05/15/25 06:18 throat house dust Allergy Mild Verified 05/15/25 06:18 pollen extracts Allergy Mild Verified 05/15/25 06:18 raw vegetable Allergy Mild Swelling Verified 05/15/25 06:18 of Lip/Tongue/Throat raw nuts Allergy Severe throat Uncoded 03/22/25 07:41 closes <Juan Manuel Ortiz MD - Last Filed: 05/20/25 16:00> [facility] Medical History: Medical History (Updated 05/15/25 @ 08:14 by Ankur Jefferson MD) Major depressive disorder, recurrent episode ?F33.9 - Major depressive disorder, recurrent, unspecified (ICD-10) <Juan Manuel Ortiz MD - Last Filed: 05/20/25 16:00> Surgical History: Surgical History (Updated 05/15/25 @ 06:25 by Volodymyr Barrera RN) History of laparoscopic cholecystectomy ?Z90.49 - Acquired absence of other specified parts of digestive tract (ICD- 10) History of tonsillectomy ?Z90.89 - Acquired absence of other organs (ICD-10) <Juan Manuel Ortiz MD - Last Filed: 05/20/25 16:00> Family History: Family History (Updated 05/06/25 @ 09:39 by Miladys Gaona MD) Sister Breast cancer Mother Stroke Diabetes Grandfather Prostate cancer <Juan Manuel Ortiz MD - Last Filed: 05/20/25 16:00> Social History: Social History (Updated 05/06/25 @ 09:40 by Miladys Gaona MD) Narrative: alcohol ingestion, 1-4 drinks/week does not use illicit drugs nonsmoker He works in IT. What is your current living situation?: I presently have a place to live Problems where you live: declined to answer In the past 12 months, utilities in danger of being shut off: no In past 12 months, lack of transportation kept you from medical appts, meetings, work, or getting things needed for daily living: no In the past 12 mos, have been you worried that your food would run out before you had money to buy more?: never true In the past 12 mos, the food you bought just didn't last and you didn't have money to buy more?: never true Smoking Status: Never smoker Second hand tobacco smoke exposure: No How often do you have a drink containing alcohol: never AUDIT-C Alcohol total score: 0 Non-prescribed substance use: denies use How often does anyone, including family, friends and others, physically hurt you : never How often does anyone, including family, friends and others, insult or talk down to you: never How often does anyone, including family, friends and others, threaten you with harm: never How often does anyone, including family, friends and others, scream or curse at you: never <Juan Manuel Ortiz MD - Last Filed: 05/20/25 16:00> Exam Narrative: Exam Narrative: General: Well-developed and well-nourished, appears uncomfortable, pale Head: Atraumatic and normocephalic Eyes: Pupils are equal reactive, extraocular motions intact, conjunctiva clear ENT: External nose and ears are normal, dry mucous membranes Neck: No midline cervical tenderness, full spontaneous range of motion the neck, trachea midline, no adenopathy Heart: Regular rate and rhythm no murmurs or thrills Lungs: Clear to auscultation bilaterally without wheezes or crackles Abdomen: Soft, diffuse tenderness most prominent in the right upper quadrant and epigastric area Musculoskeletal: No tenderness, deformity, or edema Neurologic: Awake, alert, and oriented x3, no gross focal neurologic deficits, cranial nerves intact as tested Psych: Mood and affect are appropriate Skin: No rashes <Juan Manuel Ortiz MD - Last Filed: 05/20/25 16:00> Const: Vital Signs, click to edit/add: Vital Signs - 24 hr 05/15/25 06:16 05/15/25 06:23 05/15/25 06:45 Temperature 98.0 F Pulse Rate Pulse Rate [Right Pulse Oximeter] 65 Respiratory Rate 18 Respiratory Rate [ Right Upper Abdome n] 18 Blood Pressure Blood Pressure [Ri ght Upper Arm] 105/53 L Pulse Oximetry 97 97 Oxygen Delivery Me thod Room Air 05/15/25 06:45 Temperature Pulse Rate 77 Pulse Rate [Right Pulse Oximeter] Respiratory Rate 20 Respiratory Rate [ Right Upper Abdome n] Blood Pressure 111/70 Blood Pressure [Ri ght Upper Arm] Pulse Oximetry 98 Oxygen Delivery Me thod <Juan Manuel Ortiz MD - Last Filed: 05/20/25 16:00> Vital Signs, click to edit/add: Vital Signs - 24 hr 05/15/25 06:16 05/15/25 06:23 05/15/25 06:45 Temperature 98.0 F Pulse Rate Pulse Rate [Right Pulse Oximeter] 65 Respiratory Rate 18 Respiratory Rate [ Right Upper Abdome n] 18 Blood Pressure Blood Pressure [Ri ght Upper Arm] 105/53 L Pulse Oximetry 97 97 Oxygen Delivery Me thod Room Air 05/15/25 06:45 Temperature Pulse Rate 77 Pulse Rate [Right Pulse Oximeter] Respiratory Rate 20 Respiratory Rate [ Right Upper Abdome n] Blood Pressure 111/70 Blood Pressure [Ri ght Upper Arm] Pulse Oximetry 98 Oxygen Delivery Me thod <Ankur Jefferson MD - Last Filed: 05/15/25 08:17> Course Course ED Course: Reviewed most recent operative note from May 06 when patient underwent cholecystectomy for acute cholecystitis, dose was performed laparoscopically. Patient presents today about 1 week after cholecystectomy with generalized abd ominal pain localized to the epigastrium right upper quadrant started a couple hours prior to coming the emergency department. Nausea with no vomiting. Has been having regular bowel movements. Exam here, vital is stable, appears uncomfortable, pale, no jaundice. Upper abdominal tenderness. Concern for retained stone, pancreatitis, wound bed infection. Labs and CT scan ordered along Dilaudid and Zofran <Juan Manuel Ortiz MD - Last Filed: 05/20/25 16:00> Reevaluation(s) Time of Reevaluation #1: 07:05 <Juan Manuel Ortiz MD - Last Filed: 05/20/25 16:00> Reevaluation #1: Labs independently interpreted by me with slightly elevated AST and ALT, otherwise normal lipase, normal basic panel, normal bilirubin. <Juan Manuel Ortiz MD - Last Filed: 05/20/25 16:00> Time of Reevaluation #2: 07:26 <Juan Manuel Ortiz MD - Last Filed: 05/20/25 16:00> Reevaluation #2: CT abdomen pelvis independently interpreted by me without acute findings. <Juan Manuel Ortiz MD - Last Filed: 05/20/25 16:00> Time of Reevaluation #3: 07:43 <Juan Manuel Ortiz MD - Last Filed: 05/20/25 16:00> Reevaluation #3: Care discussed with Dr. Walls, general surgery who recommends right upper quadrant ultrasound incentive MRCP to evaluate for ductal dilatation. Also suggest that this could be from gastritis or early gastric ulcer, GI cocktail ordered. <Juan Manuel Ortiz MD - Last Filed: 05/20/25 16:00> Vital Signs Vital signs: Initial Vital Signs Temperature 98.0 F 05/15/25 06:16 Temperature Source Temporal Artery Scan 05/15/25 06:16 Pulse Rate 65 05/15/25 06:16 Respiratory Rate 18 05/15/25 06:16 Blood Pressure 105/53 L 05/15/25 06:16 Blood Pressure Mean 70 05/15/25 06:16 Blood Pressure Position Supine 05/15/25 06:16 Pulse Oximetry 97 05/15/25 06:16 Oxygen Delivery Method Room Air 05/15/25 06:16 Vital Signs Temperature 98.0 F 05/15/25 06:16 Pulse Rate 65 05/15/25 06:16 Respiratory Rate 18 05/15/25 06:16 Blood Pressure 105/53 L 05/15/25 06:16 Pulse Oximetry 97 05/15/25 06:16 Oxygen Delivery Method Room Air 05/15/25 06:16 Temperature 98.0 F 05/15/25 06:16 Pulse Rate 77 05/15/25 06:45 Respiratory Rate 20 05/15/25 06:45 Blood Pressure 111/70 05/15/25 06:45 Pulse Oximetry 98 05/15/25 06:45 Oxygen Delivery Method Room Air 05/15/25 06:16 <Juan Manuel Ortiz MD - Last Filed: 05/20/25 16:00> Initial Vital Signs Temperature 98.0 F 05/15/25 06:16 Temperature Source Temporal Artery Scan 05/15/25 06:16 Pulse Rate 65 05/15/25 06:16 Respiratory Rate 18 05/15/25 06:16 Blood Pressure 105/53 L 05/15/25 06:16 Blood Pressure Mean 70 05/15/25 06:16 Blood Pressure Position Supine 05/15/25 06:16 Pulse Oximetry 97 05/15/25 06:16 Oxygen Delivery Method Room Air 05/15/25 06:16 Vital Signs Temperature 98.0 F 05/15/25 06:16 Pulse Rate 65 05/15/25 06:16 Respiratory Rate 18 05/15/25 06:16 Blood Pressure 105/53 L 05/15/25 06:16 Pulse Oximetry 97 05/15/25 06:16 Oxygen Delivery Method Room Air 05/15/25 06:16 Temperature 98.0 F 05/15/25 06:16 Pulse Rate 77 05/15/25 06:45 Respiratory Rate 20 05/15/25 06:45 Blood Pressure 111/70 05/15/25 06:45 Pulse Oximetry 98 05/15/25 06:45 Oxygen Delivery Method Room Air 05/15/25 06:16 <Ankur Jefferson MD - Last Filed: 05/15/25 08:17> Medications Administered Medications: Discontinued Medications Generic Name Dose Route Start Last Admin Trade Name Freq PRN Reason Stop Dose Admin Famotidine 20 mg 05/15/25 07:30 05/15/25 08:24 Famotidine 10 Mg/Ml Inj IVP 05/15/25 07:31 20 mg ONCE ONE Administration Hydromorphone HCl 0.5 mg 05/15/25 06:26 05/15/25 06:42 Hydromorphone 0.5 Mg/0.5 Ml Inj IVP 05/15/25 06:27 0.5 mg ONCE ONE Administration Lidocaine/Aluminum/Magnesium/Simeth 30 ml 05/15/25 07:43 05/15/25 08:24 Gi Cocktail (Visc Lido/Antacid) 30 Ml PO 05/15/25 07:44 30 ml ONCE ONE Administration Ondansetron HCl 4 mg 05/15/25 06:26 05/15/25 06:42 Ondansetron 2 Mg/Ml Inj IVP 05/15/25 06:27 4 mg ONCE ONE Administration Ondansetron HCl 4 mg 05/15/25 07:15 05/15/25 07:18 Ondansetron 2 Mg/Ml Inj IVP 05/15/25 07:16 4 mg ONCE ONE Administration <Juan Manuel Ortiz MD - Last Filed: 05/20/25 16:00> Discontinued Medications Generic Name Dose Route Start Last Admin Trade Name Freq PRN Reason Stop Dose Admin Famotidine 20 mg 05/15/25 07:30 05/15/25 08:24 Famotidine 10 Mg/Ml Inj IVP 05/15/25 07:31 20 mg ONCE ONE Administration Hydromorphone HCl 0.5 mg 05/15/25 06:26 05/15/25 06:42 Hydromorphone 0.5 Mg/0.5 Ml Inj IVP 05/15/25 06:27 0.5 mg ONCE ONE Administration Lidocaine/Aluminum/Magnesium/Simeth 30 ml 05/15/25 07:43 05/15/25 08:24 Gi Cocktail (Visc Lido/Antacid) 30 Ml PO 05/15/25 07:44 30 ml ONCE ONE Administration Ondansetron HCl 4 mg 05/15/25 06:26 05/15/25 06:42 Ondansetron 2 Mg/Ml Inj IVP 05/15/25 06:27 4 mg ONCE ONE Administration Ondansetron HCl 4 mg 05/15/25 07:15 05/15/25 07:18 Ondansetron 2 Mg/Ml Inj IVP 05/15/25 07:16 4 mg ONCE ONE Administration <Ankur Jefferson MD - Last Filed: 05/15/25 08:17> MDM - Abdominal Pain MDM Narrative Medical decision making narrative: Addendum 8:[address] Esquivel note above for details, at change of shift I was to follow up the ultrasound which showed a normal common bile duct size. Dr. Walls surgeon has been consulted. Would recommend he continue an antacid medicine at home such as Zantac daily, would also give him a few [place] to take as needed for pain. Follow-up with general surgery as needed. Return to ED as needed. Light diet light activity today. <Ankur Jefferson MD - Last Filed: 05/15/25 08:17> Lab Data Labs: Lab Results 05/15/25 Range/Units 06:38 WBC 6.30 (4.50-11.00) K/uL RBC 4.75 (4.30-5.90) m/uL Hgb 13.8 (13.5-17.5) gm/dL Hct 41.8 (37.0-53.0) % MCV 88 (80-100) fL MCH 29 (26-34) pg MCHC 33 (32-36) gm/dL RDW Coeff of Mayela 11.7 (11.5-15.5) % Plt Count 210 (140-440) K/uL Neut % (Auto) 68.3 (42.0-72.0) % Lymph % (Auto) 21.7 (20-44) % [place] % (Auto) 7.5 (0.0-11.0) % Eos % (Auto) 2.2 (0.0-7.0) % Baso % (Auto) 0.3 (0.0-3.0) % Neut # (Auto) 4.30 (1.7-7.0) K/uL Lymph # (Auto) 1.37 (0.90-2.90) K/uL [place] # (Auto) 0.50 (0.00-0.90) K/UL Eos # (Auto) 0.14 (0.00-0.50) K/uL Baso # (Auto) 0.02 (0.00-0.30) K/uL Abs Immat Gran (auto) 0.00 (0.00-0.30) K/uL Imm/Tot Granulo (auto) 0.0 % Sodium 141 (135-149) mmol/L Potassium 3.6 (3.6-5.1) mmol/L Chloride 104 (96-114) mmol/L Carbon Dioxide 31 (20-32) mmol/L Anion Gap 6 L (7-15) mEq/L BUN 20 (5-24) mg/dL Creatinine 1.0 (0.5-1.5) mg/dL Estimated Creat Clear 105.62 Estimated GFR 96 ml/min Glucose 134 H (60-115) mg/dL Calcium 9.5 (8.4-10.6) mg/dL Magnesium 2.0 (1.5-2.6) mg/dL Total Bilirubin 0.8 (0.1-1.5) mg/dL Direct Bilirubin 0.4 (0.0-0.5) mg/dL AST 99 H (12-35) U/L ALT 87 H (4-50) U/L Alkaline Phosphatase 62 (40-150) U/L Total Protein 7.3 (6.0-8.3) g/dL Albumin 4.2 (3.3-5.0) g/dL Lipase 83 (23-300) U/L <Juan Manuel Ortiz MD - Last Filed: 05/20/25 16:00> Lab Results 05/15/25 Range/Units 06:38 WBC 6.30 (4.50-11.00) K/uL RBC 4.75 (4.30-5.90) m/uL Hgb 13.8 (13.5-17.5) gm/dL Hct 41.8 (37.0-53.0) % MCV 88 (80-100) fL MCH 29 (26-34) pg MCHC 33 (32-36) gm/dL RDW Coeff of Mayela 11.7 (11.5-15.5) % Plt Count 210 (140-440) K/uL Neut % (Auto) 68.3 (42.0-72.0) % Lymph % (Auto) 21.7 (20-44) % [place] % (Auto) 7.5 (0.0-11.0) % Eos % (Auto) 2.2 (0.0-7.0) % Baso % (Auto) 0.3 (0.0-3.0) % Neut # (Auto) 4.30 (1.7-7.0) K/uL Lymph # (Auto) 1.37 (0.90-2.90) K/uL [place] # (Auto) 0.50 (0.00-0.90) K/UL Eos # (Auto) 0.14 (0.00-0.50) K/uL Baso # (Auto) 0.02 (0.00-0.30) K/uL Abs Immat Gran (auto) 0.00 (0.00-0.30) K/uL Imm/Tot Granulo (auto) 0.0 % Sodium 141 (135-149) mmol/L Potassium 3.6 (3.6-5.1) mmol/L Chloride 104 (96-114) mmol/L Carbon Dioxide 31 (20-32) mmol/L Anion Gap 6 L (7-15) mEq/L BUN 20 (5-24) mg/dL Creatinine 1.0 (0.5-1.5) mg/dL Estimated Creat Clear 105.62 Estimated GFR 96 ml/min Glucose 134 H (60-115) mg/dL Calcium 9.5 (8.4-10.6) mg/dL Magnesium 2.0 (1.5-2.6) mg/dL Total Bilirubin 0.8 (0.1-1.5) mg/dL Direct Bilirubin 0.4 (0.0-0.5) mg/dL AST 99 H (12-35) U/L ALT 87 H (4-50) U/L Alkaline Phosphatase 62 (40-150) U/L Total Protein 7.3 (6.0-8.3) g/dL Albumin 4.2 (3.3-5.0) g/dL Lipase 83 (23-300) U/L <Ankur Jefferson MD - Last Filed: 05/15/25 08:17> Discharge Plan Discharge Clinical Impression: Abdominal pain <Juan Manuel Ortiz MD - Last Filed: 05/20/25 16:00> Patient Disposition: Home w/ Parent or Adult <Juan Manuel Ortiz MD - Last Filed: 05/20/25 16:00> Condition: Stable <Juan Manuel Ortiz MD - Last Filed: 05/20/25 16:00> Additional Instructions: Light diet, fluids mostly in the advance diet as tolerated, [place] as needed for pain or discomfort. Here tests and studies today were reassuring. Call the general surgery department via problems or concerns, otherwise return to the ED. light activity recommended as well. He can use the pain medicine sparingly as needed for discomfort. <Juan Manuel Ortiz MD - Last Filed: 05/20/25 16:00> Activity Level: Light activity <Juan Manuel Ortiz MD - Last Filed: 05/20/25 16:00> Light activity <Ankur Jefferson MD - Last Filed: 05/15/25 08:17> Discharge Diet: Full Liquid <Juan Manuel Ortiz MD - Last Filed: 05/20/25 16:00> Full Liquid <Ankur Jefferson MD - Last Filed: 05/15/25 08:17> Prescriptions: New hydrocodone-acetaminophen 5-325 mg tablet 1 tab PO Q8H PRN (Reason: pain) Qty: 10 0RF No Action bupropion HCl 150 mg tablet extended release 24 hr 150 mg PO DAILY Qty: 90 3RF clindamycin phosphate 1 % lotion 1 applic topical BID Qty: 60 3RF ketorolac 10 mg tablet 10 mg PO TID PRN (Reason: pain) 5 Days Qty: 15 0RF <Juan Manuel Ortiz MD - Last Filed: 05/20/25 16:00> Follow Up/Referrals: Provider,Not a Local [Primary Care Provider, Family Practice] <Juan Manuel Ortiz MD - Last Filed: 05/20/25 16:00> Stand Alone Forms: MyHealth Info Instructions <Juan Manuel Ortiz MD - Last Filed: 05/20/25 16:00>
[2025-05-15 06:23] VITALS: RESP 18; O2SAT 97
--- NOTE | 2025-05-15 06:26 | CRLHL7_ITS ---
For Patients: As a result of the Century Cures Act, medical imaging exams and procedure reports are released immediately into your electronic medical record. You may view this report before your referring provider. If you have questions, please contact your health care provider. INDICATION: Laparoscopic cholecystectomy May 06, 2025. Abdominal pain. COMPARISON: May 06, 2025 TECHNIQUE: CT examination of the abdomen and pelvis was performed following the uneventful intravenous administration of 99 cc of Isovue 370. Thin section axial images were obtained from the lung bases through the pubic symphysis. Oral contrast was not administered. Please note that all CT scans at this facility use dose modulation, iterative reconstruction, and/or weight-based dosing when appropriate to reduce radiation dose to as low as reasonably achievable. FINDINGS: LUNG BASES: The lung bases as visualized appear normal.The heart size is normal at the lung bases. Small hiatal hernia LIVER/BILIARY SYSTEM:The liver is normal in size and configuration. There is no focal mass and there is no intra- or extra hepatic biliary ductal dilatation.Has been a cholecystectomy. No collection or significant inflammatory change at the operative bed. No unexpected findings at or near the gallbladder fossa ADRENALS: Normal KIDNEYS, URETERS and BLADDER:The kidneys appear normal. No visible mass, calculus or hydronephrosis. The ureters and bladder as visualized appear normal. SPLEEN:Normal appearance. PANCREAS: Appears normal. RETROPERITONEUM and MESENTERY: There is no mass, adenopathy or aortic aneurysm. GASTROINTESTINAL SYSTEM: There is no evidence of diverticulitis, colitis, mechanical obstruction, or appendicitis. The small bowel as visualized appears normal.A few scattered diverticula are noted PELVIS: No mass, adenopathy or free fluid. OSSEOUS STRUCTURES: There is an age-appropriate appearance of the osseous structures. OTHER: No free fluid or free air. ABDOMINAL WALL: A small amount induration of the subcutaneous fatty tissues is noted in the right upper quadrant. This is an expected postprocedural finding. There is a fluid collection identified immediately inferior and to the right of the umbilicus. This is deep within the subcutaneous fatty tissues and partially enters the right rectus sheath. This measures 1.7 x 2.0 x 1.7 centimeter. This could be an organizing hematoma or an abscess and is probably at a trocar site. Direct clinical correlation is advised. IMPRESSION: 1. A small fluid collections identified immediately inferior to the right of the umbilicus. This is deep within the subcutaneous fatty tissues partially enters the medial aspect of the right rectus sheath. This measures 2 centimeters in greatest dimension and could be an organizing hematoma or an abscess. This is probably at a trocar/instrument insertion site. Direct clinical correlation is advised. 2. Other postoperative changes, all of which are expected postoperative changes as described above. Please note that all CT scans at this facility use dose modulation, iterative reconstruction, and/or weight-based dosing when appropriate to reduce radiation dose to as low as reasonably achievable. Dictated by Terry Osorio MD @ 05/15/2025 7:33:11 AM (Electronically Signed)
[2025-05-15 06:41] LABS: Hematocrit 41.8 % (37.0-53.0); Hemoglobin* 13.8 gm/dL (13.5-17.5); Immature Granulocytes Abs Auto 0.00 K/uL (0.00-0.30); Immature Granulocytes Pct Auto 0.0 %; Lymphocytes Absolute Auto 1.37 K/uL (0.90-2.90); Mean Corpuscular HGB Conc 33 gm/dL (32-36); Mean Corpuscular Hemoglobin 29 pg (26-34); Mean Corpuscular Volume 88 fL (80-100); RDW Coefficient of Variation % 11.7 % (11.5-15.5); Red Blood Count 4.75 m/uL (4.30-5.90); White Blood Count* 6.30 K/uL (4.50-11.00)
[2025-05-15] MEDS: ONDANSETRON 2 MG/ML inj 4 MG IVP ×2 (06:42→07:18)
[2025-05-15 06:45] VITALS: BP 111/70; PULSE 77; RESP 20; O2SAT 97; O2SAT 98
[2025-05-15 06:56] LABS: Slide Review Reflex No
[2025-05-15 06:57] LABS: Albumin* 4.2 g/dL (3.3-5.0); Chloride* 104 mmol/L (96-114); Potassium* 3.6 mmol/L (3.6-5.1); Sodium* 141 mmol/L (135-149)
[2025-05-15 06:59] LABS: Blood Urea Nitrogen* 20 mg/dL (5-24); Creatinine* 1.0 mg/dL (0.5-1.5); Est. Creatinine Clearance* 105.62; Estimated Glomerular Filt Rate 96 ml/min
[2025-05-15 07:00] LABS: Alanine Aminotransferase* 87 U/L (4-50); Alkaline Phosphatase* 62 U/L (40-150); Anion Gap 6 mEq/L (7-15); Aspartate Amino Transferase* 99 U/L (12-35); Bilirubin Direct* 0.4 mg/dL (0.0-0.5); Bilirubin Total* 0.8 mg/dL (0.1-1.5); Calcium* 9.5 mg/dL (8.4-10.6); Carbon Dioxide* 31 mmol/L (20-32); Glucose* 134 mg/dL (60-115); Total Protein* 7.3 g/dL (6.0-8.3)
--- NOTE | 2025-05-15 07:44 | CRLHL7_ITS ---
For Patients: As a result of the Cures Act, medical imaging exams and procedure reports are released immediately into your electronic medical record. You may view this report before your referring provider. If you have questions, please contact your health care provider. INDICATION: Right upper quadrant abdominal pain. Status post cholecystectomy on 05/06/2025. TECHNIQUE: Ultrasound abdomen limited. COMPARISON: CT abdomen pelvis: 05/15/2025 FINDINGS: Gallbladder: Cholecystectomy Common bile duct: 3 mm. IMPRESSION: : Normal caliber common bile duct. Dictated by Ishaan Gross MD @ 05/15/2025 8:40:45 AM (Electronically Signed)
[2025-05-15] MEDS: GI COCKTAIL (VISC LIDO/ANTACID) 30 ML PO (08:24)
[2025-05-15] MEDS: FAMOTIDINE 10 MG/ML inj 20 MG IVP (08:24)
== END 2025-05-15 08:54 | disposition home or self-care (01) ==
PROVIDERS: Emergency Provider Family Medicine
DX: R10.9 Unspecified abdominal pain (principal)
CPT/HCPCS: 36415; 74177; 76705; 80048; 80076; 83690; 83735; 85025; 94761; 96374; 96375; 99285; A9270; J1171; J1308; J2405; Q9967